=== PATIENT | female | born 1980 | race Hispanic/Latino ===

== ENCOUNTER 2018-09-06 19:09 | Emergency (ER) | payer OTHER ==
[2018-09-06 20:02] VITALS: O2SAT 100
--- NOTE | 2018-09-06 23:12 | ED PDOC ---
HPI: Abdomen Time Seen by Provider: 09/06/18 22:44 Chief Complaint (Nursing): Abdominal Pain Chief Complaint (Provider): Abdominal Pain History Per: Patient History/Exam Limitations: no limitations Onset/Duration Of Symptoms: Days (x3) Current Symptoms Are (Timing): Still Present Additional Complaint(s): 38 year old female with worsening lower abdominal pain that exacerbates with movement for the past 3 days. Patient reports associated chills, poor appetite, and bloating. She denies fever or vomiting. Patient initially went to [facility] then advised to go to ED for further eval, thus, prompting visit. PCP: [facility] Past Medical History Reviewed: Historical Data, Nursing Documentation, Vital Signs Vital Signs: Last Vital Signs Temp 98.5 F 09/06/18 19:59 Pulse 78 09/06/18 19:59 Resp 16 09/06/18 19:59 BP 170/81 H 09/06/18 19:59 Pulse Ox 100 09/06/18 19:59 - Medical History PMH: HTN - Surgical History Surgical History: No Surg Hx - Family History Family History: States: Unknown Family Hx - Allergies Allergies/Adverse Reactions: Allergies Allergy/AdvReac Type Severity Reaction Status Date / Time No Known Allergies Allergy Verified 09/06/18 19:59 Review of Systems ROS Statement: Except As Marked, All Systems Reviewed And Found Negative Constitutional: Positive for: Chills. Negative for: Fever Gastrointestinal: Positive for: Abdominal Pain (lower R > L with bloating), Other (poor appetite). Negative for: Vomiting Physical Exam - Reviewed Nursing Documentation Reviewed: Yes Vital Signs Reviewed: Yes - Physical Exam Appears: Positive for: Non-toxic, No Acute Distress Head Exam: Positive for: ATRAUMATIC, NORMAL INSPECTION, NORMOCEPHALIC Skin: Positive for: Normal Color Eye Exam: Positive for: Normal appearance ENT: Positive for: Normal ENT Inspection Neck: Positive for: Normal Cardiovascular/Chest: Positive for: Regular Rate, Rhythm Respiratory: Positive for: Normal Breath Sounds Gastrointestinal/Abdominal: Positive for: Soft, Tenderness (bilateral LQ and umbilical region) Back: Positive for: Normal Inspection. Negative for: L CVA Tenderness, R CVA Tenderness Extremity: Positive for: Normal ROM (upper/lower) Neurologic/Psych: Positive for: Alert, Oriented. Negative for: Motor/Sensory Deficits - ECG O2 Sat by Pulse Oximetry: 100 (RA) Pulse Ox Interpretation: Normal Medical Decision Making Medical Decision Making: Initial Impression: 38 year old female with abdominal pain and RLQ tenderness. Initial Plan: * CT ABD/pelvis * Labs * Blood culture Time: 2255 --Patient declines any medication for pain control at this time when offered by provider. Scribe Attestation: Documented by Beata Mejias, acting as a scribe for Zaki Boyd MD. Provider Scribe Attestation: All medical record entries made by the Scribe were at my direction and personally dictated by me. I have reviewed the chart and agree that the record accurately reflects my personal performance of the history, physical exam, medical decision making, and the department course for this patient. I have also personally directed, reviewed, and agree with the discharge instructions and disposition. Disposition - Disposition Forms: [employer] ([place]i)
--- NOTE | 2018-09-06 23:37 | ED PDOC ---
HPI: Abdomen Time Seen by Provider: 09/06/18 22:44 Chief Complaint (Nursing): Abdominal Pain Chief Complaint (Provider): Abdominal Pain History Per: Patient History/Exam Limitations: no limitations Onset/Duration Of Symptoms: Days (3) Current Symptoms Are (Timing): Still Present Additional Complaint(s): 38 year old female with worsening lower abdominal pain that exacerbates with movement for the past 3 days. Patient reports associated chills, poor appetite, and bloating. She denies fever or vomiting. Patient initially went to [facility] then advised to go to ED for further eval, thus, prompting visit. PCP: [facility] Past Medical History Reviewed: Historical Data, Nursing Documentation, Vital Signs Vital Signs: Last Vital Signs Temp 98.5 F 09/06/18 19:59 Pulse 78 09/06/18 19:59 Resp 16 09/06/18 19:59 BP 170/81 H 09/06/18 19:59 Pulse Ox 100 09/06/18 19:59 - Medical History PMH: HTN - Surgical History Surgical History: No Surg Hx - Family History Family History: States: Unknown Family Hx - Home Medications Home Medications: Ambulatory Orders Medication Instructions Recorded Naproxen [Naprosyn] 500 mg PO Q12 #14 tab 09/07/18 traMADol [Ultram] 50 mg PO Q6 #12 tab 09/07/18 - Allergies Allergies/Adverse Reactions: Allergies Allergy/AdvReac Type Severity Reaction Status Date / Time No Known Allergies Allergy Verified 09/06/18 19:59 Review of Systems ROS Statement: Except As Marked, All Systems Reviewed And Found Negative Constitutional: Positive for: Chills. Negative for: Fever Gastrointestinal: Positive for: Abdominal Pain (lower R > L with bloating), Other (poor appetite). Negative for: Vomiting Physical Exam - Reviewed Nursing Documentation Reviewed: Yes Vital Signs Reviewed: Yes - Physical Exam Appears: Positive for: Non-toxic, No Acute Distress Head Exam: Positive for: ATRAUMATIC, NORMAL INSPECTION, NORMOCEPHALIC Skin: Positive for: Normal Color Eye Exam: Positive for: Normal appearance ENT: Positive for: Normal ENT Inspection Neck: Positive for: Normal Cardiovascular/Chest: Positive for: Regular Rate, Rhythm Respiratory: Positive for: Normal Breath Sounds. Negative for: Respiratory Distress Gastrointestinal/Abdominal: Positive for: Soft, Tenderness (bilateral LQ and umbilical region) Back: Positive for: Normal Inspection. Negative for: L CVA Tenderness, R CVA Tenderness Extremity: Positive for: Normal ROM (upper/lower) Neurologic/Psych: Positive for: Alert, Oriented. Negative for: Motor/Sensory Deficits - Laboratory Results Result Diagrams: 09/06/18 23:30 09/06/18 23:30 Urine POC: Negative - ECG O2 Sat by Pulse Oximetry: 100 (RA) Pulse Ox Interpretation: Normal Medical Decision Making Medical Decision Making: Initial Impression: 38 year old female with abdominal pain and RLQ tenderness. Initial Plan: * CT ABD/pelvis * Labs * Blood culture Time: 2255 --Patient declines any medication for pain control at this time when offered by provider. Time: 147 --CT ABD/pelvis FINDINGS: 8mm calcified granuloma of the right middle lobe. Unremarkable intrauterine device. Mild amount of free pelvic fluid. The liver is of uniform attenuation without mass or defect. There is no intra or extrahepatic biliary ductal dilatation. The spleen is normal. The gallbladder is within normal limits. The pancreas is of normal contour and attenuation characteristics. There is no evidence of adrenal mass. Both kidneys demonstrate prompt and equal nephrograms. The kidneys are normal in size, shape and configuration. There is no evidence of renal or ureteral mass. No renal or ureteral calculi are identified. There is no hydroureter or hydronephrosis. No evidence for appendicitis. There is no bowel wall thickening. No evidence for small or large bowel obstruction. There is no evidence of lymphadenopathy. There is no evidence of intrinsic or extrinsic bladder mass. There is no l ymphadenopathy. Images of the lung bases show no evidence of pleural or parenchymal mass. There are no pleural effusions. The bony structures are free of lytic or blastic lesions. IMPRESSION: 8mm calcified granuloma of the right middle lobe. Unremarkable intrauterine device. Mild amount of free pelvic fluid. Time: 0154 --Transvaginal US additionally ordered to evaluate pelvic pain. Time: 0405 --US transvag Findings: The uterus measures 6.9x3.1x4.3 cm. Unremarkable intrauterine device in the endometrial canal. Anteverted uterus. Normal ovaries. Moderate amount of free pelvic fluid is noted in the pelvic cul-de-sac. Normal bilateral ovarian flow. Impression: Moderate amount of free fluid in the pelvic cul-de-sac. Unremarkable intrauterine device in the endometrial canal. Time: 0415 --Labs reviewed: no significant clinical abnormality. Upon provider reevaluation, patient is medically stable, reports marketable improvement. Lab and imaging results relayed to patient in great detail. Likely ideology for pain is ovarian cyst. Advised follow up visit with FAMILY NURSE PRACTITIONER. Counseling was provided and all questions were answered regarding diagnosis. There is agreement to discharge plan. Return if symptoms persist or worsen. Clinical Impression: Ovarian cyst; pelvic pain Scribe Attestation: Documented by Beata Mejias, acting as a scribe for Zaki Boyd MD. Provider Scribe Attestation: All medical record entries made by the Scribe were at my direction and personally dictated by me. I have reviewed the chart and agree that the record accurately reflects my personal performance of the history, physical exam, medical decision making, and the department course for this patient. I have also personally directed, reviewed, and agree with the discharge instructions and disposition. Disposition - Clinical Impression Clinical Impression: Ovarian cyst, Pelvic pain - Patient ED Disposition Is Patient to be Admitted: No Counseled Patient/Family Regarding: Studies Performed, Diagnosis, Need For Followup, Rx Given - Disposition Disposition: Routine/Home Disposition Time: 04:15 Condition: STABLE Prescriptions: Naproxen [Naprosyn] 500 mg PO Q12 #14 tab traMADol [Ultram] 50 mg PO Q6 #12 tab Instructions: Ovarian Cysts, Acute Pelvic Pain Forms: [employer] (Yoruba)
[2018-09-06 23:53] LABS: INR 0.9; PROTHROMBIN TIME 10.6 Seconds (9.8-13.1)
[2018-09-07 00:04] LABS: BASO # 0.1 K/uL (0.0-0.2); BASO % 0.8 % (0.0-2.0); EOS # 0.1 K/uL (0.0-0.7); EOS % 0.8 % (0.0-4.0); HEMOGLOBIN 13.4 g/dL (12.0-16.0); LYMPH # 2.1 K/uL (1.0-4.3); LYMPH % 25.6 % (20.0-40.0); MEAN CELL VOLUME 93.9 fl (81.0-99.0); MEAN CORPUSCULAR HEMOGLOBIN 31.7 pg (27.0-31.0); MEAN CORPUSCULAR HGB CONC 33.8 g/dL (33.0-37.0); MEAN PLATELET VOLUME 7.4 fl (7.2-11.7); MONO # 0.7 K/uL (0.0-0.8); MONO % 7.8 % (0.0-10.0); NEUT # 5.5 K/uL (1.8-7.0); RBC 4.23 Mil/uL (3.80-5.20); RED CELL DISTRIBUTION WIDTH 12.6 % (11.5-14.5); WHITE BLOOD COUNT 8.4 K/uL (4.8-10.8)
[2018-09-07 00:05] LABS: ALB/GLOB RATIO 1.5 (1.0-2.1); ALBUMIN 4.8 g/dL (3.5-5.0); ALT/SGPT 35 U/L (9-52); AST/SGOT 24 U/L (14-36); BLOOD UREA NITROGEN 17 mg/dl (7-17); CALCIUM 9.6 mg/dL (8.4-10.2); GFR NON-AFRICAN AMERICAN > 60; LIPASE 32 U/L (23-300)
[2018-09-07] MEDS ORDERED: Iohexol 300 100 ML IJ ONE (00:26)
[2018-09-07] MEDS ORDERED: Sodium Chloride 0.9% 50 ML IV ONE (00:26)
[2018-09-07 01:32] LABS: SQUAMOUS EPITHIAL 1 /hpf (0-5); URINE BACTERIA OCC (<OCC); URINE BILIRUBIN NEGATIVE (NEGATIVE); URINE BLOOD SMALL (NEGATIVE); URINE CLARITY SLIGHTY-CLOUDY (Clear); URINE COLOR YELLOW (YELLOW); URINE GLUCOSE (UA) NEG (NEGATIVE); URINE LEUKOCYTE ESTERASE NEG Leu/uL (Negative); URINE PROTEIN NEGATIVE (NEGATIVE); URINE UROBILINOGEN 0.2-1.0 mg/dL (0.2-1.0)
[2018-09-07] MEDS ORDERED: Morphine 4 MG/ML VIAL ONE (03:19)
[2018-09-07] MEDS ORDERED: Morphine 4 MG/ML VIAL IVP ONE (03:30)
[2018-09-07 07:03] VITALS: BP 134/83; PULSE 84; RESP 18; TEMP 98.2
--- NOTE | 2018-09-07 09:53 | CT ---
Date of service: 09/07/2018 PROCEDURE: CT Abdomen and Pelvis with contrast HISTORY: low abd pain R>L COMPARISON: None. TECHNIQUE: Following the intravenous administration of iodinated contrast material, a CT examination of the abdomen and pelvis performed from the domes of the diaphragms to the symphysis pubis with reformatted datasets provided in axial, sagittal and coronal planes. Oral contrast was not administered as per referring physician request. Coronal and sagittal reformats were generated. Contrast dose: Omnipaque 300, 90 cc Radiation dose: Total exam DLP = 574.16 mGy-cm. This CT exam was performed using one or more of the following dose reduction techniques: Automated exposure control, adjustment of the mA and/or kV according to patient size, and/or use of iterative reconstruction technique. FINDINGS: LOWER THORAX: 9 mm calcified granuloma right middle lobe base LIVER: Unremarkable. No gross lesion or ductal dilatation. GALLBLADDER AND BILE DUCTS: Unremarkable. PANCREAS: Unremarkable. No gross lesion or ductal dilatation. SPLEEN: Unremarkable. ADRENALS: Unremarkable. No mass. KIDNEYS AND URETERS: Unremarkable. No hydronephrosis. No solid mass. VASCULATURE: Unremarkable. No aortic aneurysm. No aortic atherosclerotic calcification or mural plaque present. BOWEL: Unenhanced bowel appears unremarkable grossly. Stomach is collapsed not well evaluated. APPENDIX: Normal appendix. PERITONEUM: Trace ascites is seen in the pelvis of uncertain origin, but potentially recent adnexal cyst rupture. No definitive adnexal cyst is appreciated at this time. No free intra peritoneal gas collection or mesenteric edema. LYMPH NODES: Unremarkable. No enlarged lymph nodes. BLADDER: Unremarkable. REPRODUCTIVE: Intrauterine device identified in situ within the uterus. BONES: No acute fracture. OTHER FINDINGS: None. IMPRESSION: Trace ascites in the pelvis of uncertain origin. Consider possible recent adnexal cyst rupture though no adnexal cysts is appreciated significantly. No bowel obstruction, free intra peritoneal gas or suspicious fluid collection appreciable. IUD in situ at the uterus. 9 mm calcified granuloma right middle lobe. Concordant preliminary report from [facility], 09/07/2018 1:48 a.m..
--- NOTE | 2018-09-07 13:13 | US ---
Date of service: 09/07/2018 HISTORY: Pelvic pain. Menstrual status: Postmenopausal 2 years. COMPARISON: None available. TECHNIQUE: Transvaginal only. Real -time technique with 2D, duplex and color Doppler FINDINGS: UTERUS: Measures 3.1 x 4.3 x 6.9 cm. Normal in size and appearance. No fibroid or other mass lesion seen. ENDOMETRIUM: Intrauterine contraceptive device (IUD) identified within the endometrial canal. CERVIX: No cervical abnormality identified. RIGHT OVARY: Measures 1.5 x 1.9 x 2.8 cm. No solid mass. Normal flow. LEFT OVARY: Measures 2.1 x 2.2 x 2.7 cm. No solid mass. Normal flow. FREE FLUID: Trace free fluid identified in the pelvis/cul de sac. Calculated volume 15 mL. OTHER FINDINGS: None. IMPRESSION: Documentation of IUD within the endometrial canal. Small volume free fluid in the cul-de-sac. Concordant findings (preliminary report) provided by [facility].
== END 2018-09-07 04:17 | disposition home or self-care (01) ==
LOC: H.ER 19:09
DX: N83.209 Unspecified ovarian cyst, unspecified side (principal); R10.2 Pelvic and perineal pain; I10 Essential (primary) hypertension
CPT/HCPCS: 74177; 76830; 80053; 81003; 81025; 83605; 83690; 85025; 85610; 85730; 87040; 96374; 99284; J1885; J2270; Q9967